=== PATIENT | male | born 1950 | race Two or more races ===

== ENCOUNTER 2024-03-17 18:37 | Inpatient (IN) | payer MEDICARE, OTHER ==
--- NOTE | 2024-03-17 19:14 | ED ---
General Adult HPI - General Chief complaint: Altered Mental Status Stated complaint: AMS Time Seen by Provider: 03/17/24 18:48 Source: patient, family, EMS Mode of arrival: EMS Limitations: altered mental status - History of Present Illness Initial comments: Patient is a 73-year-old male with no known significant medical history however has not seen a doctor in many years presenting today with his son and [id number] for altered mental status and aggressive behavior. Majority of history is provided by son and [id number]. They state that over the last 2 years. They believe patient has had progressive development of dementia. He has not been formally diagnosed. He has become more forgetful. Patient lives with his girlfriend and today he was found trying to break into the neighbors house. Upon returning home he got into a fight with his girlfriend and stated "I will kill you". At this point police were called patient was brought to the emergency department. Does not take any medications every day. - Related Data Home Medications Medication Instructions Recorded Confirmed No Known Home Medications 03/17/24 03/17/24 Allergies Allergy/AdvReac Type Severity Reaction Status Date / Time No Known Allergies Allergy Verified 03/17/24 19:38 Review of Systems ROS Statement: Those systems with pertinent positive or pertinent negative responses have been documented in the HPI. ROS Other: All systems not noted in ROS Statement are negative. Limitations: ROS unobtainable due to patients medical condition Past Medical History Additional Past Medical History / Comment(s): Closed head injury- 1982 History of Any Multi-Drug Resistant Organisms: None Reported Past Surgical History: No Surgical Hx Reported Past Psychological History: No Psychological Hx Reported Smoking Status: Current every day smoker Past Alcohol Use History: None Reported Past Drug Use History: Marijuana General Exam - General Exam Comments Initial Comments: PE: CONSTITUTIONAL: No apparent distress, well appearing SKIN: Warm, dry, no jaundice, hives or petechiae EYES: Pupils are equally round, extraocular movements intact without nystagmus, clear conjunctiva, non-icteric sclera HENT: Normocephalic, atraumatic, dry mucus membranes, oropharynx clear without exudates NECK: , Full range of motion, normal appearance PULMONARY: Clear to auscultation without wheezes, rhonchi, or rales, normal excursion, no accessory muscle use and no stridor CARDIOVASCULAR: Regular rate, rhythm, normal S1 and S2. No appreciated murmurs, rubs or gallops. Strong radial pulses with intact distal perfusion. No lower extremity edema GASTROINTESTINAL: Soft, non-tender, non-distended, no palpable masses, no rebound or guarding. No hepatosplenomegaly MUSCULOSKELETAL: Extremities have no gross deformity, no edema, redness, or swelling. No calf swelling ot TTP. NEUROLOGIC:_a/o x 1-2, GCS 15, normal mentation and speech. Moves all extremities x 4 without motor or sensory deficit PSYCHIATRIC:_normal mood and flat affect, patient is able to answer some questions, he is calm and cooperative Limitations: altered mental status Course Vital Signs 03/17/24 03/17/24 18:40 23:38 Temperature 98.4 F 98.2 F Pulse Rate 45 L 48 L Respiratory 16 16 Rate Blood Pressure 133/80 126/81 O2 Sat by Pulse 95 94 L Oximetry EKG Findings - EKG Comments: EKG Findings:: Sinus bradycardia, rate 44 bpm, QRS duration 105 ms, OH interval 167 ms, QT/QTc 490/442 ms, normal axis, no STEMI, no arrhythmia Medical Decision Making - Medical Decision Making Was pt. sent in by a medical professional or institution (, PA, PULMONARY FUNCTION TECHNOLOGIST, urgent care, hospital, or fdc...) When possible be specific @ -No Did you speak to anyone other than the patient for history (EMS, parent, family, police, friend...)? What history was obtained from this source @ -Spoke with patient's son and [id number] at bedside Did you review nursing and triage notes (agree or disagree)? Why? @ -I reviewed and agree with nursing and triage notes Were old charts reviewed (outside hosp., previous admission, EMS record, old EKG, old radiological studies, urgent care reports/EKG's, fdc records)? Report findings @ -No old charts available for review Differential Diagnosis (chest pain, altered mental status, abdominal pain women, abdominal pain men, vaginal bleeding, weakness, fever, dyspnea, syncope, headache, dizziness, GI bleed, back pain, seizure, CVA, palpatations, mental health, musculoskeletal)? @Differential Altered Mental Status: Hypoglycemia, ETOH, UDS, accidental medication OD overdose, intracranial mass, myxedema coma, infection, psychosis, hepatic encephalopathy,dementia this is not meant to be an all-inclusive list EKG interpreted by me (3pts min.). @ -As above X-rays interpreted by me (1pt min.). @ -I see no cardiomegaly, consolidations or effusions CT interpreted by me (1pt min.). @ -CT brain shows no acute intracranial lesion U/S interpreted by me (1pt. min.). @ -None done What testing was considered but not performed or refused? (CT, X-rays, U/S, labs)? Why? @ -None What meds were considered but not given or refused? Why? @ -No Did you discuss the management of the patient with other professionals (professionals i.e. , PA, PULMONARY FUNCTION TECHNOLOGIST, lab, RT, psych nurse, social worker clinical, handicapper harness racing, teacher, third officer, block and case maker)? Give summary @ -No Was smoking cessation discussed for >3mins.? @ -No Was critical care preformed (if so, how long)? @ -No Were there social determinants of health that impacted care today? How? (Homelessness, low income, unemployed, alcoholism, drug addiction, transportation, low edu. Level, literacy, decrease access to med. care, senior care, rehab)? @ -No Was there de-escalation of care discussed even if they declined (Discuss DNR or withdrawal of care, Hospice)? @ -No What co-morbidities impacted this encounter? (DM, HTN, Smoking, COPD, CAD, Cancer, CVA, ARF, Chemo, Hep., AIDS, mental health diagnosis, sleep apnea, morbid obesity)? @ -None Was patient admitted / discharged? Hospital course, mention meds given and route, prescriptions, significant lab abnormalities, going to OR and other pertinent info. @ -Hospital course Admittedpatient 73-year-old male no significant past medical history however does not see a doctor regularly, today for acute on progressively worsening confusion/AMS. Fam. reports progressive cognitive decline last 3 years and suspects dementia hwoever no formal dx, today however patient knocking on neighbors doors, trying to break into their home, argued with girlfriend and th reatened to kill her this is not normal for behavior the patient. Additionally patient knows who his daughter in law and son are in today was not able to identify them initially. Family also noted patient has been talking about old pets that are no longer living. On initial assessment patient is calm and cooperative, oriented to self and place but not time, does not know the president initially not able to identify [id number] and son. Differential diagnosis as above, broad workup initiated including CT brain, ammonia level, salicylate, Tylenol level, EKG, troponin, CBC, CMP, mag level, phosphorus, urine, UDS and blood alcohol. Of note due to patient's homicidal statements patient's son willing to petition the patient, petition will be filed. UDS positive for marijuana, urine strongly suggestive of UTI, otherwise labs and imaging grossly within normal limits. Additional abnormal values not concerning for acute pathology related to presenting complaint. Updated patient and family to results. Additionally, patient petitioned by son for homicidal statement to his girlfriend. Psychiatry consult will be placed. Cefepime ordered. Patient admitted to Dr. Kan for further treatment. Undiagnosed new problem with uncertain prognosis? @ -Yes Drug Therapy requiring intensive monitoring for toxicity (Heparin, Nitro, Insulin, Cardizem)? @ -No Were any procedures done? @ -No Diagnosis/symptom? @ -Acute encephalopathy, urinary tract infection Acute, or Chronic, or Acute on Chronic? @ -Acute Uncomplicated (without systemic symptoms) or Complicated (systemic symptoms)? @ -Complicated Side effects of treatment? @ -No Exacerbation, Progression, or Severe Exacerbation? @ -No Poses a threat to life or bodily function? How? (Chest pain, [place], [place], pneumonia, PE, COPD, DKA, ARF, appy, cholecystitis, CVA, Diverticulitis, Homicidal, Suicidal, threat to staff... and all critical care pts) @ -Yes - Lab Data Result diagrams: 03/17/24 19:55 03/17/24 19:55 Lab Results 03/17/24 03/17/24 03/17/24 Range/Units 19:55 19:55 19:55 WBC 6.7 (3.8-10.6) k/uL RBC 4.94 (4.30-5.90) m/uL Hgb 14.7 (13.0-17.5) gm/dL Hct 45.5 (39.0-53.0) % MCV 92.2 (80.0-100.0) fL MCH 29.7 (25.0-35.0) pg MCHC 32.2 (31.0-37.0) g/dL RDW 13.1 (11.5-15.5) % Plt Count 261 (150-450) k/uL MPV 7.8 Neutrophils % 64 % Lymphocytes % 26 % Monocytes % 6 % Eosinophils % 3 % Basophils % 0 % Neutrophils # 4.3 (1.3-7.7) k/uL Lymphocytes # 1.7 (1.0-4.8) k/uL Monocytes # 0.4 (0-1.0) k/uL Eosinophils # 0.2 (0-0.7) k/uL Basophils # 0.0 (0-0.2) k/uL PT 11.6 (10.0-12.5) sec INR 1.1 (<1.2) APTT 24.9 (22.0-30.0) sec Sodium 139 (137-145) mmol/L Potassium 3.8 (3.5-5.1) mmol/L Chloride 110 H (98-107) mmol/L Carbon Dioxide 25 (22-30) mmol/L Anion Gap 4 mmol/L BUN 19 (9-20) mg/dL Creatinine 0.81 (0.66-1.25) mg/dL Est GFR (CKD-EPI)AfAm >90 (>60 ml/min/1.73 sqM) Est GFR (CKD-EPI)NonAf 89 (>60 ml/min/1.73 sqM) Glucose 101 H (74-99) mg/dL Calcium 9.2 (8.4-10.2) mg/dL Total Bilirubin 1.6 H (0.2-1.3) mg/dL AST 27 (17-59) U/L ALT 13 (4-49) U/L Alkaline Phosphatase 68 (38-126) U/L Ammonia (<30) umol/L Troponin I (0.000-0.034) ng/mL Total Protein 6.4 (6.3-8.2) g/dL Albumin 3.9 (3.5-5.0) g/dL TSH 0.766 (0.465-4.680) mIU/L Urine Color Urine Appearance (Clear) Urine pH (5.0-8.0) Ur Specific [place] (1.001-1.035) Urine Protein (Negative) Urine Glucose (UA) (Negative) Urine Ketones (Negative) Urine Blood (Negative) Urine Nitrite (Negative) Urine Bilirubin (Negative) Urine Urobilinogen (<2.0) mg/dL Ur Leukocyte Esterase (Negative) Urine RBC (0-5) /hpf Urine WBC (0-5) /hpf Urine WBC Clumps (None) /hpf Ur Squamous Epith Cells (0-4) /hpf Calcium Oxalate Crystal (None) /hpf Urine Bacteria (None) /hpf Urine Mucus (None) /hpf Salicylates <1.0 mg/dL Urine Opiates Screen (NotDetected) Ur Oxycodone Screen (NotDetected) Urine Methadone Screen (NotDetected) Acetaminophen <10.0 ug/mL Ur Barbiturates Screen (NotDetected) U Tricyclic Antidepress (NotDetected) Ur Phencyclidine Scrn (NotDetected) Ur Amphetamines Screen (NotDetected) U Methamphetamines Scrn (NotDetected) U Benzodiazepines Scrn (NotDetected) Urine Cocaine Screen (NotDetected) U Marijuana (THC) Screen (NotDetected) Serum Alcohol <10 mg/dL 03/17/24 03/17/24 03/17/24 Range/Units 19:55 19:55 20:57 WBC (3.8-10.6) k/uL RBC (4.30-5.90) m/uL Hgb (13.0-17.5) gm/dL Hct (39.0-53.0) % MCV (80.0-100.0) fL MCH (25.0-35.0) pg MCHC (31.0-37.0) g/dL RDW (11.5-15.5) % Plt Count (150-450) k/uL MPV Neutrophils % % Lymphocytes % % Monocytes % % Eosinophils % % Basophils % % Neutrophils # (1.3-7.7) k/uL Lymphocytes # (1.0-4.8) k/uL Monocytes # (0-1.0) k/uL Eosinophils # (0-0.7) k/uL Basophils # (0-0.2) k/uL PT (10.0-12.5) sec INR (<1.2) APTT (22.0-30.0) sec Sodium (137-145) mmol/L Potassium (3.5-5.1) mmol/L Chloride (98-107) mmol/L Carbon Dioxide (22-30) mmol/L Anion Gap mmol/L BUN (9-20) mg/dL Creatinine (0.66-1.25) mg/dL Est GFR (CKD-EPI)AfAm (>60 ml/min/1.73 sqM) Est GFR (CKD-EPI)NonAf (>60 ml/min/1.73 sqM) Glucose (74-99) mg/dL Calcium (8.4-10.2) mg/dL Total Bilirubin (0.2-1.3) mg/dL AST (17-59) U/L ALT (4-49) U/L Alkaline Phosphatase (38-126) U/L Ammonia <9 (<30) umol/L Troponin I <0.012 (0.000-0.034) ng/mL Total Protein (6.3-8.2) g/dL Albumin (3.5-5.0) g/dL TSH (0.465-4.680) mIU/L Urine Color Yellow Urine Appearance Turbid (Clear) Urine pH 5.5 (5.0-8.0) Ur Specific [place] 1.021 (1.001-1.035) Urine Protein 1+ H (Negative) Urine Glucose (UA) Negative (Negative) Urine Ketones Trace H (Negative) Urine Blood Small H (Negative) Urine Nitrite Negative (Negative) Urine Bilirubin Negative (Negative) Urine Urobilinogen 12.0 (<2.0) mg/dL Ur Leukocyte Esterase Moderate H (Negative) Urine RBC 15 H (0-5) /hpf Urine WBC >182 H (0-5) /hpf Urine WBC Clumps Few H (None) /hpf Ur Squamous Epith Cells 4 (0-4) /hpf Calcium Oxalate Crystal Occasional H (None) /hpf Urine Bacteria Few H (None) /hpf Urine Mucus Moderate H (None) /hpf Salicylates mg/dL Urine Opiates Screen Not Detected (NotDetected) Ur Oxycodone Screen Not Detected (NotDetected) Urine Methadone Screen Not Detected (NotDetected) Acetaminophen ug/mL Ur Barbiturates Screen Not Detected (NotDetected) U Tricyclic Antidepress Not Detected (NotDetected) Ur Phencyclidine Scrn Not Detected (NotDetected) Ur Amphetamines Screen Not Detected (NotDetected) U Methamphetamines Scrn Not Detected (NotDetected) U Benzodiazepines Scrn Not Detected (NotDetected) Urine Cocaine Screen Not Detected (NotDetected) U Marijuana (THC) Screen Detected H (NotDetected) Serum Alcohol mg/dL Disposition Clinical Impression: Acute encephalopathy, Urinary tract infection Disposition: ADMITTED IP TO THIS HOSP
[2024-03-17 20:08] LABS: Basophils % (A) 0 %; Eosinophils # (A) 0.2 k/uL (0-0.7); Eosinophils % (A) 3 %; HCT 45.5 % (39.0-53.0); HGB 14.7 gm/dL (13.0-17.5); Lymphocytes # (A) 1.7 k/uL (1.0-4.8); Lymphocytes % (A) 26 %; MCH 29.7 pg (25.0-35.0); MCHC 32.2 g/dL (31.0-37.0); MCV 92.2 fL (80.0-100.0); Mean Platelet Volume 7.8; Monocytes # (A) 0.4 k/uL (0-1.0); Monocytes % (A) 6 %; Neutrophils # (A) 4.3 k/uL (1.3-7.7); Neutrophils % (A) 64 %; Platelet Count 261 k/uL (150-450); RBC 4.94 m/uL (4.30-5.90); RDW 13.1 % (11.5-15.5); WBC 6.7 k/uL (3.8-10.6)
[2024-03-17 20:18] LABS: INR 1.1 (<1.2); Partial Thromboplastin Time 24.9 sec (22.0-30.0); Prothrombin Time 11.6 sec (10.0-12.5)
--- NOTE | 2024-03-17 20:30 | XR ---
EXAMINATION TYPE: XR chest 2V DATE OF EXAM: 03/17/2024 8:09 PM CLINICAL INDICATION: Male, 73 years old with history of altered mental status; [facility] COMPARISON: None TECHNIQUE: XR chest 2V Frontal view of the chest. FINDINGS: Lungs/Pleura: There is no evidence of pleural effusion, focal consolidation, or pneumothorax. Pulmonary vascularity: Unremarkable. Heart/mediastinum: Cardiomediastinal silhouette is unremarkable. Musculoskeletal: No acute osseous pathology. IMPRESSION: No acute cardiopulmonary disease/process.
--- NOTE | 2024-03-17 20:34 | CT ---
EXAMINATION TYPE: CT brain wo con CT DLP: 1068.4 mGycm, Automated exposure control for dose reduction was used. DATE OF EXAM: 03/17/2024 8:15 PM COMPARISON: None. CLINICAL INDICATION: Male, 73 years old with history of Altered mental status, AMS TECHNIQUE: Brain: Axial CT images of the brain were obtained with coronal and sagittal reformats created and rev iewed. Contrast used: None. Oral contrast used: None. FINDINGS: Brain: Extra-axial spaces: No abnormal extra-axial fluid collections. Ventricular system: Dilatation in proportion to cerebral atrophy. Cerebral parenchyma: Cerebral atrophy. No acute intraparenchymal hemorrhage or mass effect. The louie -white junction is well differentiated. Scattered hypoattenuating areas are seen within the white mat ter. Cerebellum: Unremarkable. Mass effect: No evidence of midline shift. Intracranial vasculature: Atherosclerotic calcifications of the intracranial vessels. Soft tissues: Normal. Calvarium/osseous structures: No depressed skull fracture. Paranasal sinuses and mastoid air cells: Mild scattered paranasal sinus disease. Visualized orbits: Orbital contents are intact. IMPRESSION: 1. No acute intracranial process. 2. Nonspecific white matter changes, likely secondary to chronic small vessel ischemic disease.
[2024-03-17 20:50] LABS: ALT 13 U/L (4-49); AST 27 U/L (17-59); Acetaminophen <10.0 ug/mL; African American GFR (CKD) >90 (>60 ml/min/1.73 sqM); Albumin 3.9 g/dL (3.5-5.0); Alcohol <10 mg/dL; Alkaline Phosphatase 68 U/L (38-126); Anion Gap 4 mmol/L; Blood Urea Nitrogen 19 mg/dL (9-20); Calcium 9.2 mg/dL (8.4-10.2); Carbon Dioxide 25 mmol/L (22-30); Chloride 110 mmol/L (98-107); Glucose 101 mg/dL (74-99); Non-African American GFR(CKD) 89 (>60 ml/min/1.73 sqM); Potassium 3.8 mmol/L (3.5-5.1); Salicylate <1.0 mg/dL; Sodium 139 mmol/L (137-145); Total Bilirubin 1.6 mg/dL (0.2-1.3); Total Protein 6.4 g/dL (6.3-8.2)
[2024-03-17] MEDS: SODIUM CHLORIDE 0.9% 500 ML 500 ML IV ONE (20:54)
[2024-03-17 21:34] LABS: Appearance,Urine Turbid (Clear); Bacteria,Urine Few /hpf; Bilirubin,Urine Negative (Negative); Blood,Urine Small (Negative); Calcium Oxalate Crystals,Urine Occasional /hpf; Color,Urine Yellow; Glucose,Urine (UA) Negative (Negative); Ketones,Urine Trace (Negative); Leukocyte Esterase,Urine Moderate (Negative); Mucus,Urine Moderate /hpf; Nitrite,Urine Negative (Negative); PH, Urine 5.5 (5.0-8.0); Protein,Urine 1+ (Negative); RBC,Urine 15 /hpf (0-5); Specific Gravity,Urine 1.021 (1.001-1.035); Squamous Epithelial Cell,Urine 4 /hpf (0-4); WBC,Urine >182 /hpf (0-5)
[2024-03-17 21:55] LABS: Amphetamine Screen,Urine Not Detected (NotDetected); Barbiturate Screen,Urine Not Detected (NotDetected); Benzodiazepines Screen,Urine Not Detected (NotDetected); Cocaine Screen,Urine Not Detected (NotDetected); Methadone Screen, Urine Not Detected (NotDetected); Opiate Screen,Urine Not Detected (NotDetected); Oxycodone Screen, Urine Not Detected (NotDetected); Phencyclidine Screen,Urine Not Detected (NotDetected); Tricyclic Antidepressant,Urine Not Detected (NotDetected); Urn Cannabinoid Scrn Detected (NotDetected)
[2024-03-17] MEDS: CEFEPIME 2 GM in SODIUM CHLORIDE 0.9% 100 ML IVPB STA (22:18)
[2024-03-17] MEDS ORDERED: bisacodyL 5 MG TABLET.DR PO PRN (22:51)
[2024-03-17] MEDS ORDERED: CALCIUM CARBONATE 500 MG CHEWABLE PO PRN (22:51)
[2024-03-17] MEDS ORDERED: MAG HYDROX/AL HYDROX/SIMETH 30 ML CUP PO PRN (22:51)
[2024-03-17] MEDS ORDERED: NALOXONE 0.4 MG/ML 1 ML VIAL IV PRN (22:51)
[2024-03-18] MEDS ORDERED: LORazepam 1 MG TAB PO PRN (04:52)
[2024-03-18] MEDS: LORazepam 2 MG/ML INJ IV PRN (05:04)
[2024-03-18] MEDS: LORazepam 2 MG/ML INJ ONE (05:25)
[2024-03-18] MEDS ORDERED: HALOPERIDOL LACTATE 5 MG/ML 1 ML VIAL IM PRN (06:51)
[2024-03-18] MEDS: HALOPERIDOL LACTATE 5 MG/ML 1 ML VIAL ONE (07:00)
[2024-03-18] MEDS: FAMOTIDINE 20 MG TAB PO SCH (08:32)
--- NOTE | 2024-03-18 15:28 | P.CN ---
Psychiatric Consult - . Consult date: 03/18/24 Consult:: IDENTIFYING DATA: This patient is a 73 year old man. REASON FOR REFERRAL: Psychiatry was consulted for agitation and altered mental status. HISTORY OF PRESENT ILLNESS: Neno Bai is a 73 year old man who presented to the emergency department at the urging of his family members due to their concern for his declining health status. He was reportedly found trying to break into a neighbor's house and subsequently made threats against his live-in partner. Per review of the record, family also shared that he has had a progressive decline in function over the last two years and has not received medical care in at least that amount of time. Patient was notably agitated and aggressive while in the ER and required medication to help maintain staff and patient safety. Since that time patient was found to have a UTI and waxing/waning mental status with bursts of agitation and aggression when he wakes from sleep. The extent of the evaluation was limited as the patient was actively having an episode of aggression during the time of the visit and was in the process of being Safe by nursing staff and receiving medication. He was unable to engage and answer any questions in light of this. PAST PSYCHIATRIC HISTORY: The patient's past psychiatric history is largely unknown. However family member states that he has not formally received a diagnosis of dementia though they have observed a decline in his function over the last 2 years. PAST MEDICAL HISTORY: Closed head injury (1981) ALLERGIES: No known allergies CHEMICAL DEPENDENCY HISTORY: Daily smoker, uses marijuana (UDS positive on admission) FAMILY PSYCHIATRIC/SUBSTANCE USE HISTORY: Unable to obtain SOCIAL HISTORY: Prior to admission patient resided with his partner at home. MENTAL STATUS EXAM: General Appearance: Patient appears older than stated age is combative and agitated. Appears unkempt. Behavior: Patient was observed thrashing in bed, attempting to get up. Speech: Patient's speech is sparse. Non-fluent. Mood/Affect: Patient unable to state mood due to acute agitation. Perceptions: Patient not clearly observed responding to internal stimuli but was agitated. Though content/process: Paucity of thought. Memory and concentration: Not oriented. Judgment and insight: Poor IMPRESSIONS: Neno Bai is a 73-year-old man with no known psychiatric history who presented to the emergency department after becoming acutely aggressive and threatening at home in the context of a 2-year decline in function per his family. Since presenting to the hospital he has been intermittently agitated and frequently wakes from sleep thrashing in bed and demonstrating aggression, prohibiting safe care. A full psychiatric evaluation was unable to be completed due to the acute agitation episode that occurred at the time of today's visit. While Mr. Bai may be experiencing dementia, the acute change in his mental status is likely secondary to multifactorial delirium. This is particularly likely given that he was found to have a significant urinary tract infection on admission. At present the goal will be to further delineate the underlying causes of the delirium and manage them appropriately while also maintaining pat ient and staff safety. - Hyperactive Delirium (secondary to UTI, among other possible causes) - Unspecified neurocognitive disorder (rule out major neurocognitive disorder) PLAN: -At this time patient DOES NOT meet criteria for inpatient psychiatric admission. -Delirium precautions recommended with patient including: avoiding use of narcotics and BUDGET AND POLICY ANALYST sedatives, limit anticholinergic medications when possible, frequent re-orientation, minimize use of restraints, open window shades during the day and close them at night, getting patient out of bed and to a chair when safely possible, considering the use of a sitter in lieu of physical restraints when possible, avoid continuous noise from TV -Would recommend the following medication changes/additions: - Discontinue Lorazepam as it has not been effective for acute agitation. - Will order Diazepam 5 mg Q6H either PO/IV route of administration for acute agitation as this medication has been effective - In order to avoid frequent need for PRN medication will initiate Divalproex Sprinkles 125 mg BID (can be opened and administered with food) to help decrease agitation. (Considered olanzapine as a scheduled medication, but given patient's response to diazepam would like to keep this medication available if needed for acute agitation--and IM olanzapine is contraindicated with benzodiazepines) -At present, the risk of benzodiazepine use in an older adult with possible neurocognitive disorder is outweighed by the benefit of the medication helping to facilitate safe care for the patient. Will continously reassess this risk/benefit ratio and discontinue the benzodiazepine use as soon as is safe for the patient. -Communicated plan to patient's nurse -Will continue to follow along -Please contact with any questions.
[2024-03-18] MEDS: SODIUM CHLORIDE 0.9% 1,000 ML IV SCH (15:45)
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
[2024-03-18] MEDS: HEPARIN SODIUM,PORCINE 5,000 UNIT/ML 1 ML VIAL SQ SCH (22:53)
[2024-03-18] MEDS: DIVALPROEX SPRINKLE 125 MG CAP.SPRINK PO SCH (22:53)
[2024-03-19] MEDS: diazePAM 5 MG TAB PO PRN (16:05)
[2024-03-19 16:49] LABS: Basophils # (A) 0.05 X 10*3/uL (0.00-0.10); Basophils % (A) 0.7 %; Eosinophils # (A) 0.16 X 10*3/uL (0.04-0.35); Eosinophils % (A) 2.2 %; HGB 14.5 g/dL (13.0-17.0); Lymphocytes # (A) 1.51 X 10*3/uL (0.90-5.00); Lymphocytes % (A) 20.3 %; MCH 29.7 pg (27.0-32.0); MCHC 31.5 g/dL (32.0-37.0); MCV 94.1 FL (80.0-97.0); Monocytes # (A) 0.75 X 10*3/uL (0.20-1.00); Monocytes % (A) 10.1 %; NRBC Per 100 WBC 0 X 10*3/uL (0.00-0.01); Neutrophils # (A) 4.93 X 10*3/uL (1.80-7.70); Neutrophils % (A) 66.3 %; Platelet Count 269 X 10*3/uL (140-440); RBC 4.89 X 10*6/uL (4.40-5.60); RDW 13.1 % (11.5-14.5); WBC 7.43 X 10*3/uL (4.50-10.00)
[2024-03-19 17:21] LABS: ALT 12 U/L (10-49); AST 27 U/L (14-35); Alkaline Phosphatase 81 U/L (41-126); BUN/Creat Ratio 17.33 Ratio (12.00-20.00); Blood Urea Nitrogen 15.6 mg/dL (9.0-27.0); Calcium 9.1 mg/dL (8.7-10.3); Carbon Dioxide 24.9 mmol/L (21.6-31.8); Chloride 110 mmol/L (96-109); Globulin 2.1 g/dL (1.6-3.3); Glucose 92 mg/dL (70-110); Sodium 143 mmol/L (135-145); Total Bilirubin 0.6 mg/dL (0.3-1.2); Total Protein 6.1 g/dL (6.2-8.2)
[2024-03-20] MEDS: CYANOCOBALAMIN 500 MCG TAB PO SCH (09:11)
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
[2024-03-22 10:30] VITALS: BMI 23.7
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
[2024-03-23] MEDS: OLANZapine 5 MG TAB PO SCH (00:16)
[2024-03-23 09:35] LABS: Basophils # (A) 0.05 X 10*3/uL (0.00-0.10); Basophils % (A) 0.7 %; Eosinophils # (A) 0.16 X 10*3/uL (0.04-0.35); Eosinophils % (A) 2.4 %; HCT 45.8 % (39.6-50.0); HGB 14.8 g/dL (13.0-17.0); Lymphocytes # (A) 1.99 X 10*3/uL (0.90-5.00); Lymphocytes % (A) 29.5 %; MCH 30.1 pg (27.0-32.0); MCHC 32.3 g/dL (32.0-37.0); MCV 93.1 FL (80.0-97.0); Mean Platelet Volume 10.9 FL (9.5-12.2); Monocytes # (A) 0.63 X 10*3/uL (0.20-1.00); Monocytes % (A) 9.3 %; NRBC Per 100 WBC 0 X 10*3/uL (0.00-0.01); Neutrophils # (A) 3.89 X 10*3/uL (1.80-7.70); Neutrophils % (A) 57.7 %; Platelet Count 283 X 10*3/uL (140-440); RBC 4.92 X 10*6/uL (4.40-5.60); RDW 13.3 % (11.5-14.5); WBC 6.75 X 10*3/uL (4.50-10.00)
[2024-03-23] MEDS: OLANZapine 10 MG VIAL IM PRN (10:06)
[2024-03-23 10:09] LABS: BUN/Creat Ratio 11.12 Ratio (12.00-20.00); Blood Urea Nitrogen 8.9 mg/dL (9.0-27.0); Calcium 9.1 mg/dL (8.7-10.3); Carbon Dioxide 23.5 mmol/L (21.6-31.8); Chloride 107 mmol/L (96-109); Glucose 93 mg/dL (70-110); Potassium 4.8 mmol/L (3.5-5.5); Sodium 140 mmol/L (135-145)
[2024-03-23] MEDS: CEPHALEXIN 500 MG CAP PO SCH (11:42)
[2024-03-23] MEDS: diazePAM 5 MG TAB PO PRN (16:01)
[2024-03-23] MEDS ORDERED: OLANZapine 5 MG TAB PO SCH (21:00)
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
[2024-03-23 23:04] LABS: Appearance,Urine Clear (Clear); Bilirubin,Urine Negative (Negative); Blood,Urine Small (Negative); Color,Urine Colorless; Glucose,Urine (UA) Negative (Negative); Hyaline Casts,Urine 4 /lpf (0-2); Ketones,Urine Negative (Negative); Leukocyte Esterase,Urine Negative (Negative); Mucus,Urine Rare /hpf; Nitrite,Urine Negative (Negative); PH, Urine 6.5 (5.0-8.0); Protein,Urine Negative (Negative); RBC,Urine 27 /hpf (0-5); Specific Gravity,Urine 1.008 (1.001-1.035); Squamous Epithelial Cell,Urine <1 /hpf (0-4); Urobilinogen,Urine <2.0 mg/dL (<2.0); WBC,Urine 7 /hpf (0-5)
[2024-03-24] MEDS: HALOPERIDOL LACTATE 5 MG/ML 1 ML VIAL IM PRN (18:19)
[2024-03-26] MEDS ORDERED: LORazepam 2 MG/ML INJ IV PRN (13:26)
--- NOTE | 2024-03-26 14:34 | P.PN ---
Progress Note - Text Progress Note Date: 03/26/24 Follow-up Mediation Review Chief Complaint: My pets are out. Subjective: The patient noted that he does not feel very good because his pets are out. When asked about the names of the pets he confabulated. He did not know their names. The patient was unable to hold a meaningful conversation. The patient has h/o progressive decline in cognition, behavior, and ability to take care of himself. He came with behavioral issues, confusion, and cognitive deficit secondary to UTI. His delirium has improved but underlying dementia is causing behavioral issue and sundowning. Objective- MSE: Alert and attentive. Oriented x 1 Dressed and Groomed: adequately in hospital clothes. Pleasant and cooperative. Psychomotor Activity: Normal. Speech: Normal in tone and quality. Reduced in quantity. Mood: Not good. Affect: Appropriate. SI or HI: None. Perceptual disturbance: None noted Thought Content: No paranoia or other delusional thinking noted. Thought Process: Normal. Cognition: Periodic confusion, oriented x2, impaired memory, compromised higher cognitive functions. Judgment and Insight: Poor. Diagnosis: R/O Senile dementia of Alzheimers type. Plan and Recommendations: he patient will benefit by subacute rehab. skilled nursing placement in Cognitive unit after all the treatable causes of Dementia have been ruled out. Medications recommendations: Ativan 0.5 mg po/im prn q8h for severe agitation or anxiety. Increase Depakote to 250 mg po bid at 9am and 5pm Seroquel 12.5 mg at bedtime. Gentle and firm redirection. Continue sitter for safety.
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
[2024-03-26] MEDS: QUEtiapine 25 MG TAB PO SCH (20:21)
[2024-03-26] MEDS: DIVALPROEX SPRINKLE 125 MG CAP.SPRINK PO SCH (20:21)
[2024-03-26] MEDS ORDERED: DIVALPROEX SPRINKLE 125 MG CAP.SPRINK PO SCH (21:00)
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
[2024-03-27] MEDS: LORazepam 0.5 MG TAB PO PRN (08:41)
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
[2024-03-27] MEDS: QUEtiapine 25 MG TAB PO SCH (12:36)
[2024-03-28 08:48] LABS: Basophils # (A) 0.06 X 10*3/uL (0.00-0.10); Basophils % (A) 0.8 %; Eosinophils # (A) 0.16 X 10*3/uL (0.04-0.35); HCT 47.6 % (39.6-50.0); HGB 15.3 g/dL (13.0-17.0); Lymphocytes # (A) 1.66 X 10*3/uL (0.90-5.00); Lymphocytes % (A) 20.8 %; MCH 29.4 pg (27.0-32.0); MCHC 32.1 g/dL (32.0-37.0); MCV 91.5 FL (80.0-97.0); Mean Platelet Volume 10.8 FL (9.5-12.2); Monocytes # (A) 0.75 X 10*3/uL (0.20-1.00); Monocytes % (A) 9.4 %; NRBC Per 100 WBC 0 X 10*3/uL (0.00-0.01); Neutrophils # (A) 5.31 X 10*3/uL (1.80-7.70); Neutrophils % (A) 66.4 %; Platelet Count 258 X 10*3/uL (140-440); RDW 13.2 % (11.5-14.5); WBC 7.99 X 10*3/uL (4.50-10.00)
[2024-03-28 09:17] LABS: ALT 13 U/L (10-49); AST 25 U/L (14-35); Albumin 3.8 g/dL (3.8-4.9); Albumin/Globulin Ratio 1.52 Ratio (1.60-3.17); Alkaline Phosphatase 80 U/L (41-126); Bilirubin, Conjugated <0.20 mg/dL (0.20-0.40); Bilirubin,Unconjugated >0.60 mg/dL (0.20-1.00); Calcium 9.4 mg/dL (8.7-10.3); Chloride 106 mmol/L (96-109); Globulin 2.5 g/dL (1.6-3.3); Glucose 103 mg/dL (70-110); Potassium 4.3 mmol/L (3.5-5.5); Sodium 141 mmol/L (135-145); Total Bilirubin 0.8 mg/dL (0.3-1.2); Total Protein 6.3 g/dL (6.2-8.2)
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
[2024-03-28] MEDS: QUEtiapine 25 MG TAB PO SCH (22:08)
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
[2024-03-30] MEDS ORDERED: ZINC OXIDE PASTE (Z-GUARD) 1 APPLIC TOPICAL PRN (06:02)
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
[2024-03-30] MEDS: QUEtiapine 25 MG TAB PO SCH (21:18)
[2024-03-31] MEDS: QUEtiapine 25 MG TAB PO SCH (08:54)
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
[2024-03-31] MEDS: ACETAMINOPHEN TAB 325 MG TAB PO PRN (23:59)
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
[2024-04-02 11:00] LABS: HCT 50.5 % (39.6-50.0); HGB 16.4 g/dL (13.0-17.0); MCH 30.2 pg (27.0-32.0); MCHC 32.5 g/dL (32.0-37.0); Mean Platelet Volume 11.2 FL (9.5-12.2); NRBC Per 100 WBC 0 X 10*3/uL (0.00-0.01); Platelet Count 322 X 10*3/uL (140-440); RBC 5.43 X 10*6/uL (4.40-5.60); RDW 12.8 % (11.5-14.5); WBC 9.81 X 10*3/uL (4.50-10.00)
[2024-04-02 11:10] LABS: BUN/Creat Ratio 22.33 Ratio (12.00-20.00); Blood Urea Nitrogen 20.1 mg/dL (9.0-27.0); Calcium 9.2 mg/dL (8.7-10.3); Carbon Dioxide 25.1 mmol/L (21.6-31.8); Chloride 104 mmol/L (96-109); Glucose 100 mg/dL (70-110); Potassium 4.2 mmol/L (3.5-5.5); Sodium 141 mmol/L (135-145)
[2024-04-02 11:40] LABS: Basophils # (A) 0.05 X 10*3/uL (0.00-0.10); Basophils % (A) 0.5 %; Eosinophils # (A) 0.02 X 10*3/uL (0.04-0.35); Eosinophils % (A) 0.2 %; Lymphocytes # (A) 1.56 X 10*3/uL (0.90-5.00); Lymphocytes % (A) 15.9 %; Monocytes # (A) 1.58 X 10*3/uL (0.20-1.00); Monocytes % (A) 16.1 %; Neutrophils # (A) 6.52 X 10*3/uL (1.80-7.70); Neutrophils % (A) 66.5 %; RBC Morphology Normal (Normal)
[2024-04-02] MEDS: TAMSULOSIN 0.4 MG CAP.ER.24H PO STA (16:10)
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
[2024-04-03] MEDS: TAMSULOSIN 0.4 MG CAP.ER.24H PO SCH (09:51)
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
--- NOTE | 2024-04-04 12:51 | XR ---
EXAMINATION TYPE: XR chest 1V portable DATE OF EXAM: 04/04/2024 COMPARISON: 03/17/2024 INDICATION: Short of breath TECHNIQUE: Single frontal view of the chest is obtained. FINDINGS: The heart size is normal. The pulmonary vasculature is normal. The lungs are clear. IMPRESSION: 1. No acute pulmonary process. [facility], , 04/04/2024 12:49 PM
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
[2024-04-05 02:11] VITALS: TEMP 98
[2024-04-05 08:02] VITALS: BP 111/70; PULSE 69; RESP 18
--- NOTE | 2024-04-05 13:08 | P.PN ---
Progress Note - Text Progress Note Date: 04/05/24 Patient will require a walker on discharge as he was able to ambulate although unsteady to be able to manage his ADLs. Patient will require a walker secondary to major neurocognitive deficit, likely dementia, and prolonged hospitalization.
--- NOTE | 2024-04-07 08:32 | P.DS ---
Providers Date of admission: 03/17/24 22:53 Expected date of discharge: 04/05/24 Attending physician: Tabitha Kan MD Consults: 03/17/24 23:34 Consult Physician Routine Consulting Provider: Psychiatry - [facility] Psychiatry Consult Reason/Comments: Petitioned by family Do you want consulting provider notified?: Yes Primary care physician: Stated None Hospital Course: Final diagnosis Acute delirium with aggressive behavior. Cognitive impairment has been having behavior disturbance for the past 2 years. Most like related to dementia, need to be reevaluated as an outpatient Aerococcus urinae urinary tract infection, present on admission Acute urinary retention status post straight catheterization requiring indwelling Nugent catheter, failed trial void will continue Flomax, indwelling Nugent catheter reinserted as patient was refusing straight catheterization Marijuana use disorder Moderate protein calorie malnutrition with a BMI of 23.7 GI prophylaxis DVT prophylaxis Full code Discharge disposition Patient is being discharged in a stable condition with guarded prognosis to home with son. Patient will follow-up with Dr. Esqueda to establish in the outpatient setting upon discharge. Patient is to continue with indwelling Nugent catheter and outpatient follow-up with urology as scheduled. Total time taken is greater than 35 minutes. Hospital course This is a 73-year-old male who was recently admitted with altered mental status and increased agitation and aggression with behavioral disturbances. Patient with prolonged hospitalization with continued agitation evaluated by multiple consultations including psychiatry recommending medication adjustments and Seroquel. Family felt he was oversedated and not his normal self and refused any further medications including Depakote and Seroquel. Son wanted to take the patient home and was unable to walk. Patient evaluated by PT/OT therapy and initially felt to be weak although patient had been ambulatory prior to hospitalization. Initially recommending rehab and there were no accepting ECF's to take the patient. Patient worked with physical therapy was able to work with a walker and is being arranged for home with a walker and will be going home with son of which he reports is available 06/02 for him in the home. Attempted to remove Nugent catheter although patient was having retention and started on Flomax patient will be going home with an indwelling Nugent catheter and instructed to follow-up with urology outpatient. Please refer to other consultation notes for further HPI. Currently no reports of chest pain, shortness of breath, or palpitations. Patient is afebrile. No reports of nausea or vomiting and patient is tolerating diet. Patient will be discharged home with son today. Guarded prognosis and high risk for readmissions given patient's comorbidities and behavioral issues with increased agitation. Physical exam: Gen: This is a 73-year-old male who is awake, alert and oriented x 1-2, baseline, well-developed, elderly appearing, thin HEENT: Head is atraumatic, normocephalic. Pupils equal, round. Sclerae is anicteric. NECK: Supple. No JVD. No lymphadenopathy. No thyromegaly. LUNGS: Clear to auscultation. No wheezes or rhonchi. No intercostal retractions. HEART: Regular rate and rhythm. No murmur. ABDOMEN: Soft. Bowel sounds are present. No masses. No tenderness. EXTREMITIES: No pedal edema. No calf tenderness. NEUROLOGICAL: Patient is awake, alert and oriented x1-2 baseline. Cranial nerves 2 through 12 are grossly intact. Diffusely weak Please refer to medication reconciliation sheet for a list of medications. The impression and plan of care has been dictated by Jeri Tate, Nurse Practitioner as directed. Dr. Roland MD I have performed a history and examination and MDM of this patient, discussed the same with the dictator, and agree with the dictator's assessment and plan as written ,documented as a scribe. Based on total visit time, I have performed more than 50% of the visit. Patient Condition at Discharge: Fair Plan - Discharge Summary Discharge Rx Participant: No New Discharge Prescriptions: New Cyanocobalamin [Vitamin B-12] 1,000 mcg PO DAILY #60 tab Divalproex Sprinkle [Depakote Sprinkle] 250 mg PO 0900,1700 30 Days #120 cap Famotidine [Pepcid] 20 mg PO BID #60 tab Calcium Carbonate [Tums] 1,000 mg PO Q4HR PRN tab PRN Reason: Dyspepsia Acetaminophen Tab [Tylenol] 650 mg PO Q6HR PRN tab PRN Reason: Mild Pain Or Fever > 100.5 Tamsulosin HCl [Flomax] 0.4 mg PO DAILY #30 cap ALPRAZolam [Xanax] 0.25 mg PO BID #6 tab Discharge Medication List Acetaminophen Tab [Tylenol] 650 mg PO Q6HR PRN tab 04/02/24 [Rx] Calcium Carbonate [Tums] 1,000 mg PO Q4HR PRN tab 04/02/24 [Rx] Cyanocobalamin [Vitamin B-12] 1,000 mcg PO DAILY #60 tab 04/02/24 [Rx] Divalproex Sprinkle [Depakote Sprinkle] 250 mg PO 0900,1700 30 Days #120 cap 04/02/24 [Rx] Famotidine [Pepcid] 20 mg PO BID #60 tab 04/02/24 [Rx] Tamsulosin HCl [Flomax] 0.4 mg PO DAILY #30 cap 04/02/24 [Rx] ALPRAZolam [Xanax] 0.25 mg PO BID #6 tab 04/05/24 [Rx] Follow up Appointment(s)/Referral(s): Van Quesada MD [STAFF PHYSICIAN] - 1 Week (Follow-up outpatient for trial void due to retention - Urologist) Myra Esqueda MD [STAFF PHYSICIAN] - 1 Week (set up a primary care doctor) Jeniffer Isaacs MD [Medical Doctor] - 1 Week (Call for appt. Office closed at time of discharge - Neurologist) Patient Instructions/Handouts: Famotidine (By mouth), Alprazolam (By mouth), Tamsulosin (By mouth), Quetiapine (By mouth), Divalproex (By mouth), Folic Aci d/Cyanocobalamin (By mouth), Urinary Retention in Men (GEN), Fall Prevention for Older Adults (DC) Activity/Diet/Wound Care/Special Instructions: Activity limited until follow-up Follow-up with primary care provider to establish outpatient Follow-up with neurology outpatient Continue taking medications as prescribed [facility] care Discharge Disposition: HOME WITH HOME HEALTH SERVICES
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
== END 2024-04-05 15:04 | disposition home health service (06) | DRG 689 ==
LOC: EC 18:37 → 5NMEDONC 22:53
PROVIDERS: ADMIT Internal Medicine; ATTEND Internal Medicine
DX: N39.0 Urinary tract infection, site not specified (principal); G93.41 Metabolic encephalopathy; E44.0 Moderate protein-calorie malnutrition; F05 Delirium due to known physiological condition; F02.811 Dementia in other diseases classified elsewhere, unspecified severity, with agitation; F02.82 Dementia in other diseases classified elsewhere, unspecified severity, with psychotic disturbance; G30.1 Alzheimer's disease with late onset; F17.210 Nicotine dependence, cigarettes, uncomplicated; B95.2 Enterococcus as the cause of diseases classified elsewhere; R33.9 Retention of urine, unspecified; R26.2 Difficulty in walking, not elsewhere classified; R53.1 Weakness; Z68.23 Body mass index [BMI] 23.0-23.9, adult; Z87.820 Personal history of traumatic brain injury; Z78.1 Physical restraint status
CPT/HCPCS: 36415; 70450; 71045; 71046; 80048; 80053; 80076; 80143; 80179; 80306; 80320; 81001; 82140; 82607; 82747; 83036; 84443; 84484; 85025; 85610; 85730; 86780; 87086; 93005; 94760; 96361; 96365; 99285